=== PATIENT | male | born 2005 | race Two or more races ===

== ENCOUNTER 2025-03-17 00:44 | Emergency (ER) | payer MEDICAID, SELFPAY ==
[2025-03-17 00:46] VITALS: BMI 30.9
[2025-03-17 02:39] VITALS: BP 146/89; PULSE 70; RESP 18; TEMP 36.7; O2SAT 99
--- NOTE | 2025-03-17 02:52 | XR_ITS ---
Examination: Abdomen sonogram, Limited Date and time of exam: March 17, 2025, 0329 hours INDICATIONS: Epigastric pain nausea and vomiting beginning last night. Technique: Real-time polanco scale transabdominal sonographic images of the upper abdomen obtained. Findings: Minimal gallbladder sludge, negative for gallstones Normal gallbladder wall 0.3 cm Normal common bile duct 0.3 cm Pancreas obscured by bowel gas Liver 15.9 cm fatty infiltration smooth contour Normal hepatopetal portal venous flow Patent IVC IMPRESSION: Gallbladder sludge Negative for cholelithiasis, negative for cholecystitis Normal common bile duct
--- NOTE | 2025-03-17 02:53 | PD.EDRME ---
Rapid Medical Screening Exam RME Arrival date/time: 03/17/25 00:44 This is a case of 19-year-old male with no medical history came in in the emergency room due to upper abdominal pain and epigastric pain for 1 day associated with nausea vomiting worsening of the symptoms this patient decided to sought consult here in the emergency room Chief Complaint: Abdominal Pain Vital signs: Vital Signs Temperature 98.1 F 03/17/25 02:39 Pulse Rate 70 03/17/25 02:39 Respiratory Rate 18 03/17/25 02:39 Blood Pressure 146/89 H 03/17/25 02:39 Pulse Oximetry (%) 99 03/17/25 02:39 Oxygen Delivery Method Room Air 03/17/25 02:39 Exam: Moderate tenderness on the right upper and epigastric area no guarding no rebound no rigidity Clinical Impression: Abdominal pain
[2025-03-17 03:51] LABS: Basophils # (Auto) 0.0 Thou/mm3 (0.0-0.2); Basophils % (Auto) 0 % (0-2.5); Eosinophils # (Auto) 0.1 Thou/mm3 (0.0-0.5); Eosinophils % (Auto) 0 % (0-10); Hematocrit 41.6 % (41.0-53.0); Hemoglobin 14.2 g/dL (13.5-16.0); Immature Granulocytes Auto 0.03 Thou/mm3 (0.00-0.00); Lymphocytes # (Auto) 1.1 Thou/mm3 (1.0-5.0); Lymphocytes % (Auto) 9 % (10-50); Mean Corpuscular HGB Conc 34.1 g/dl (31.0-37.0); Mean Corpuscular Hemoglobin 28.4 pg (25.0-35.0); Mean Corpuscular Volume 83 fL (80-100); Monocytes # (Auto) 0.5 Thou/mm3 (0.0-0.8); Monocytes % (Auto) 4 % (0-12); Neutrophils # (Auto) 10.8 Thou/mm3 (1.8-7.7); Neutrophils % (Auto) 87 % (37-80); Nucleated Red Blood Cell # 0.00 Thou/mm3 (0.00-0.00); Nucleated Red Blood Cell % 0 /100 WBC (0); Platelet Count 257 Thou/mm3 (140-440); RDW Standard Deviation 37.6 fL (35.1-43.9); Red Blood Count 5.00 Miln/mm3 (4.50-5.90); White Blood Count 12.5 Thou/mm3 (4.5-11.0)
--- NOTE | 2025-03-17 04:47 | PD.EDABDPN ---
ED Abdominal Pain RME/HPI General Chief Complaint: Abdominal Pain Stated complaint: UPPER ABD PAIN Arrival date/time: 03/17/25 00:44 RME / HPI RME / HPI narrative: 03/17/25 00:44 This is a case of 19-year-old male with no medical history came in in the emergency room due to upper abdominal pain and epigastric pain for 1 day associated with nausea vomiting worsening of the symptoms this patient decided to sought consult here in the emergency room DR. BARRETT MAIN ED EVALUATION: Patient presenting with epigastric abdominal pain onset of approximately 6 pm of constant nature, non-radiating, with several bouts of non-bloody emesis. No recent melena or hematechezia, notes chills without fever. Mild dizziness with lightheadedness, particularly with pain. PMH: Negative PSH: Non-contributory Allergies: KNDA Social: Non-smoker, Non-drinker Exam: Moderate tenderness on the right upper and epigastric area no guarding no rebound no rigidity Impression: Abdominal pain Related Data Previous Rx's ?Medication ?Instructions ?Recorded docusate sodium 100 mg capsule 100 mg PO QDAY #30 caps 01/08/19 (Colace) Allergies Allergy/AdvReac Type Severity Reaction Status Date / Time No Known Allergies Allergy Mild Verified 03/17/25 00:49 Review of Systems Review of Systems Systems Reviewed: All systems reviewed, normal except as documented Past Medical History Surgical History SURGICAL: Positive Bowel Surgery (as a child) ED Exam Narrative Physical exam: GEN. APPEARANCE: The patient is alert awake oriented X-3 under no distress, lying down comfortably, does not look ill/toxic. Patient has good eye contact. Patient is cooperative. VITALS: All vitals were reviewed and the pulse ox is 99%, which is normal according to my interpretation HEENT: Normocephalic, atraumatic and nontender. Pupils are equal and reactive. Oral mucosa is moist. NECK: Supple, nontender, no meningismus, no JVD. There is no thyromegaly and no lymphadenopathy. CHEST: Nontender on palpation no deformity and no crepitus. CARDIOVASCULAR: Heart regular rhythm, no murmur or gallop rub or extra beats. LUNGS: Clear to auscultation bilaterally with symmetrical chest rise. No laboring tachypnea or wheezing. No intercostal subcostal retraction. No rales and no rhonchi. ABDOMEN: Soft, flat, TTP mid-epigastric/left subcostal region, no guarding or rebound tenderness. There are no abnormal masses palpated. No pulsatile masses or bruits. Active and normal bowel sounds. EXTREMITIES: Normal inspection and palpation. No edema. No cyanosis. Patient is able to move all 4 extremities well SKIN: Warm and dry, no rashes noted. MUSCULOSKELETAL: No lumbar or midline bony tenderness. There is no CVA tenderness. No paraspinal muscle spasm or tenderness. NEURO: Cranial nerves II through XII grossly intact. There are no focal neurologic deficits noted. GCS is 15 PSYCHIATRIC: Patient is in normal mood and affect, cooperative. LYMPHATICS: No major lymphadenopathy noted. Course Quality Measures none Orders Category Date Time Status US gall bladder Stat Exams 03/17/25 02:52 Taken CBC Stat Lab 03/17/25 03:07 Completed Comprehensive Metabolic Panel Stat Lab 03/17/25 03:07 Completed Lipase Stat Lab 03/17/25 03:07 Completed Urinalysis Stat Lab 03/17/25 02:52 Ordered Lidocaine 2% Viscous [Xylocaine 2% Viscous] Med 03/17/25 04:51 Discontinued 15 ml PO X1 ONE mg Hyd/Al Hyd/Deandre Susp [Maalox Susp] Med 03/17/25 04:51 Discontinued 30 ml PO X1 ONE Vital Signs Vital signs: Vital Signs Temperature 98.1 F 03/17/25 02:39 Pulse Rate 70 03/17/25 02:39 Respiratory Rate 18 03/17/25 02:39 Blood Pressure 146/89 H 03/17/25 02:39 Pulse Oximetry (%) 99 03/17/25 02:39 Oxygen Delivery Method Room Air 03/17/25 02:39 Abdominal Pain MDM MDM Narrative MDM Narrative:: Scribe Attestation: Alva Pace am scribing for and in the presence of Dr. Coats. Provider Notation: Although this document has been carefully reviewed, there may still be some phonetic and other typographical errors. These errors are purely grammatical due to imperfections in the software program and should not be construed in any way to compromise the substance of the patient's medical care during this visit. Patient presenting with epigastric abdominal pain onset of approximately 6 pm of constant nature, nonradiating, with several bouts of nonbloody emesis. No recent melena or hematechezia, notes chills without fever. Please see PE findings. Treated with GI coktail and viscous lidocaine with mild to moderate relief. Laboratory markers, including CBC and serum chemistries demonstrated a marginally elevated WBC of 12.5, normal hemoglobin with slight left shift. Serum chemistries are currently pending. Special imaging including Gall Bladder US which demonstrates mild sludge, no signs of cholecystitis. Final diagnosis is gastritis. Patient data External records reviewed:: [facility] previous records (No recent ED records available for review) Clinical information provided by:: patient Social determinants that could affect healthcare access:: none Patient has the following chronic illnesses:: None reported How is presenting disease/condition affected by chronic disease/condition?: no chronic disease Evaluation data The following diagnostics were reviewed and interpreted by me:: lab results and radiology exam(s) Lab and/or radiology exams considered but not ordered:: None Interpretation Summary: RADIOLOGY Gall Bladder US: Pending official radiology report. Medications / Prescriptions Medications or Prescriptions considered but not ordered:: None Medication administrations:: Medication Administration History Discontinued Medications Al Hydrox/Mg Hydrox/Simethicone (Mg Hyd/Al Hyd/Deandre (Maalox Reg) Susp 30 Ml Udc) 30 ml PO X1 ONE Stop: 03/17/25 04:52 Last Admin: 03/17/25 05:34 Dose: 30 ml Documented By: CCT Lidocaine HCl (Lidocaine Viscous 2% 15 Ml Udc) 15 ml PO X1 ONE Stop: 03/17/25 04:52 Last Admin: 03/17/25 05:34 Dose: 15 ml Documented By: CCT See above if any Consultations Consultation(s) initiated? (list below): No Diagnosis Differential diagnosis abdominal pain: abdominal pain, calculus of kidney, gastroenteritis, pancreatitis, small bowel obstruction and other (Gastritis, GERD, Ulcer) Most likely diagnosis given after review of the tests above:: Gastritis Admission Indicated Admission indicated?: not indicated Explain why admission is indicated or not indicated:: Patient does not meet admission criteria Admission Request Was there a request for admission?: No Disposition Plan Disposition Plan: Discharge Discharge Attestation Discharge Attestation: The patient and all family members were given an opportunity to ask questions and understood the discharge instructions. Discharge instructions specifically effects, indications for sooner follow up or return to the emergency department, and the expected course of current diagnosis. Patient condition: Stable Discharge Plan Plan Patient Disposition: HOME (Self Care) Prescriptions/Referrals Prescriptions/Med Rec: No Action docusate sodium [Colace] 100 mg capsule 100 mg PO QDAY Qty: 30 0RF Referrals: Carlyle Vo MD [Primary Care Provider, Family Practice] - In 1 week Problem List Clinical Impression: Gastritis Patient/Caregiver Discharge Instructions Print Language: Greek Stand Alone Forms: Brie Award Info., Patient Portal Info Letter
[2025-03-17 05:17] LABS: Alanine Aminotransferase 45 U/L (10-49); Albumin, Serum 5.2 gm/dL (3.5-5.0); Albumin/Globulin Ratio 2.2 (1.2-2.2); Alkaline Phosphatase 85 U/L (46-116); Anion Gap 10 (7-16); Aspartate Amino Transferase 33 U/L (0-34); BUN/Creatinine Ratio 15 Ratio (12-20); Bilirubin,Total 0.7 mg/dL (0.3-1.2); Blood Urea Nitrogen 12 mg/dL (9-23); Calcium 9.6 mg/dL (8.3-10.6); Calcium (Corrected) 9.6 mg/dL (8.5-10.1); Carbon Dioxide 27.4 mMol/L (20.0-31.0); Chloride 104 mMol/L (98-107); Creatinine (Component) 0.8 mg/dL (0.6-1.3); Estimated Creatinine Clearance 179.5 mL/min (>60); Globulin 2.4 gm/dL (2.3-3.5); Glucose 119 mg/dL (74-106); Lipase 23 U/L (12-53); Osmolality,Calculated 281 (275-295); Potassium 4.1 mMol/L (3.4-5.1); Sodium 141 mMol/L (136-145); Total Protein 7.6 gm/dL (5.7-8.2); eGFR > 60 See Note
[2025-03-17] MEDS: LIDOCAINE VISCOUS 2% 15 ML UDC PO (05:34)
[2025-03-17] MEDS: MG HYD/AL HYD/SIME (Maalox Reg) SUSP 30 ML UDC PO (05:34)
== END 2025-03-17 06:15 | disposition home or self-care (01) ==
PROVIDERS: Nurse Practitioner Family; Emergency Provider Emergency Medicine; PCP Family Medicine
DX: K29.70 Gastritis, unspecified, without bleeding (principal)
CPT/HCPCS: 36415; 76705; 80053; 81001; 83690; 85025; 99283; J3490; A9270